=== PATIENT | male | born 1985 | race Caucasian/White ===

== ENCOUNTER 2016-09-01 05:25 | Emergency (ER) | payer SELFPAY ==
[2016-09-01] MEDS ORDERED: methylPREDNISolone SODIUM SUC 125 MG/2 ML VIAL IM ONE (05:38)
--- NOTE | 2016-09-01 05:41 | ED.PDOC ---
History of Present Illness - General Chief Complaint: ENT Problem Stated Complaint: sore itchy throat Time Seen by Provider: 09/01/16 05:38 Source: patient, RN notes reviewed, Vital Signs reviewed Exam Limitations: no limitations - History of Present Illness Initial Comments: Patient comes in with a 3 day history of an itchy throat. Denies pain. No ear pain, no fever or chills. + nasal congestion. Timing/Duration: gradual Severity: severe EENT Location: throat Prearrival Treatment: no prearrival treatment Improving Factors: nothing Worsening Factors: nothing Associated Symptoms: nasal congestion/drainage, sore throat Allergies/Adverse Reactions: Allergies Morphine Allergy (Verified 09/01/16 05:34) Home Medications: Ambulatory Orders Lidocaine HCl (Mouth-Throat) [Lidocaine HCl Viscous] 10 ml MT Q4HR PRN #120 ml 09/01/16 Review of Systems - Review of Systems Constitutional: States: diaphoresis. Denies: chills, fever, malaise EENTM: States: nose congestion, throat pain, throat swelling. Denies: ear pain , ear discharge, nose pain, mouth pain, mouth swelling Respiratory: States: no symptoms reported. Denies: cough Cardiology: States: no symptoms reported Gastrointestinal/Abdominal: States: no symptoms reported. Denies: nausea, vomiting Musculoskeletal: States: no symptoms reported Skin: States: no symptoms reported Neurological: States: no symptoms reported. Denies: headache All other Systems: No Change from Baseline Past Medical History (General) - Patient Medical History Hx Asthma: Yes Hx Cardiac Disorders: Yes - heart murmur Hx Cancer: No Hx Hepatitis C: No Surgical History: other - Vaccination History Hx Tetanus, Diphtheria Vaccination: No Hx Influenza Vaccination: No - Social History Hx Tobacco Use: Yes Hx Alcohol Use: Yes - occ - Female History Patient is a Female of Child Bearing Age (10 -59 yrs old): No Patient : No Family Medical History - Family History Mother Family History: Unknown Living Status: Still Living Physical Exam - Physical Exam General Appearance: Alert, No apparent distress - but is uncomfortable, Well Developed, Well Groomed, Well Hydrated, Well Nourished Eye Exam: bilateral normal Ear Exam: bilateral ear: auricle normal, canal normal, TM normal Throat Exam: pharynx swelling, pharynx tenderness, other - pharyngeal erythema Neck: non-tender, full range of motion, supple, lymphadenopathy (R), lymphadenopathy (L) Cardiovascular/Respiratory: regular rate, rhythm, no M/R/G, no JVD, normal breath sounds, no respiratory distress Neurologic: alert, normal mood/affect, oriented x 3 Skin Exam: normal color, warm/dry Comments: Vital Signs 09/01/16 05:34 Temperature 97.6 F Pulse Rate [ 94 H left] Respiratory 18 Rate Blood Pressure 145/99 [left] O2 Sat by Pulse 99 Oximetry Progress - Progress Progress: 09/01/16 06:01 Per Lab: strep test is negative. - Results/Orders Results/Orders: Laboratory Tests 09/01/16 05:36 Group A Strep DNA Negative Departure - Departure Clinical Impression: Pharyngitis Time of Disposition: 06:01 Disposition: Discharge to Home or Self Care Condition: Good Departure Forms: ED Discharge - Pt. Copy, Patient Portal Self Enrollment Instructions: DI for Viral Pharyngitis Diet: resume usual diet Activity: increase activity as tolerated Prescriptions: Lidocaine HCl (Mouth-Throat) [Lidocaine HCl Viscous] 10 ml MT Q4HR PRN #120 ml PRN Reason: Throat Pain Home Medications: Ambulatory Orders Lidocaine HCl (Mouth-Throat) [Lidocaine HCl Viscous] 10 ml MT Q4HR PRN #120 ml 09/01/16
[2016-09-01 05:42] VITALS: BP 145/99; TEMP 97.6; O2SAT 99
[2016-09-01] MEDS ORDERED: LIDOCAINE VIS-MYLANTA 30 ML UD PO ONE (06:09)
[2016-09-01] MEDS ORDERED: diphenhydrAMINE HCL 50 MG/ML VIAL ONE (06:14)
[2016-09-01] MEDS ORDERED: diphenhydrAMINE HCL 25 MG CAP PO ONE (06:14)
== END 2016-09-01 06:18 | disposition home or self-care (01) ==
LOC: ER 05:25
DX: J02.9 Acute pharyngitis, unspecified (principal); R01.1 Cardiac murmur, unspecified; J45.909 Unspecified asthma, uncomplicated; Z87.891 Personal history of nicotine dependence; Z88.6 Allergy status to analgesic agent
CPT/HCPCS: 87070; 87651; J1200; J2930

== ENCOUNTER 2016-12-06 14:28 | Emergency (ER) | payer SELFPAY ==
[2016-12-06 14:44] VITALS: TEMP 98.5
--- NOTE | 2016-12-06 16:07 | ED.PDOC ---
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 [employer] NOTICED THE RASH ON HIS CHEST AND WANTED HIM TO GET EXAMINED. STARTED YESTERDAY. ITCHY BUT NOT PAINFUL. Timing/Duration: yesterday Severity: mild Location: torso Improving Factors: nothing Worsening Factors: nothing Associated Symptoms: itching Allergies/Adverse Reactions: Allergies Morphine Allergy (Verified 09/01/16 05:34) Home Medications: Ambulatory Orders NK [NK] 12/06/16 Review of Systems - Review of Systems Constitutional: States: no symptoms reported EENTM: States: no symptoms reported Respiratory: States: no symptoms reported. Denies: cough, short of breath Cardiology: States: no symptoms reported Gastrointestinal/Abdominal: States: no symptoms reported Genitourinary: States: no symptoms reported Musculoskeletal: States: no symptoms reported Skin: States: rash Neurological: States: no symptoms reported Endocrine: States: no symptoms reported Hematologic/Lymphatic: States: no symptoms reported All other Systems: Reviewed and Negative Past Medical History (General) - Patient Medical History Hx Asthma: Yes Hx Cardiac Disorders: Yes - heart murmur Hx Congestive Heart Failure: No Hx Diabetes: No Hx Cancer: No Hx Hepatitis C: No Surgical History: appendectomy - Vaccination History Hx Tetanus, Diphtheria Vaccination: No Hx Influenza Vaccination: No - Social History Hx Tobacco Use: Yes Hx Alcohol Use: Yes - occ - Female History Patient : No Family Medical History - Family History Mother Family History: Unknown Living Status: Still Living Physical Exam - Physical Exam General Appearance: Alert, No apparent distress Eyes, Ears, Nose, Throat Exam: PERRL/EOMI, normal ENT inspection Neck: full range of motion, supple Cardiovascular/Chest: normal peripheral pulses, regular rate, rhythm Respiratory: chest non-tender, lungs clear Gastrointestinal/Abdominal: non tender, soft Back Exam: no CVA tenderness Extremity: non-tender, normal inspection 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 EXAMINATION OF HAIR FOLICLES SHOWS DISCRETE ERYTHEMA AROUND 20 OR SO HAIR FOLLICLES OF THE R SUPERIOR CHEST, C/W FOLLICULITIS. Skin Problem Location: torso Skin Character: erythema, macules Lymphatic: no adenopathy Progress - Progress Progress: 12/06/16 16:21 PT DECLINES OFFER OF RX FOR MUPIROCIN OINTMENT FOR THE FOLLICULITIS AND WOULD RATHER TRY NEOSPORIN. Departure - Departure Clinical Impression: Folliculitis Disposition: Discharge to Home or Self Care Condition: Good Departure Forms: ED Discharge - Pt. Copy, Patient Portal Self Enrollment Instructions: DI for Folliculitis Diet: resume usual diet Activity: increase activity as tolerated Home Medications: Ambulatory Orders NK [NK] 12/06/16 Additional Instructions: Please keep the area clean with soap and water. Try shaving from the opposite direction. Neosporin may help.
[2016-12-06 16:25] VITALS: BP 122/69; O2SAT 99
== END 2016-12-06 16:25 | disposition home or self-care (01) ==
LOC: ER 14:28
DX: L73.9 Follicular disorder, unspecified (principal); R01.1 Cardiac murmur, unspecified; Z88.6 Allergy status to analgesic agent

== ENCOUNTER 2016-12-28 13:33 | Emergency (ER) | payer SELFPAY ==
--- NOTE | 2016-12-28 14:15 | CT ---
Study: CT of the Head. Indication: Altered mental status Technique: Axial CT images of the head were acquired without intravenous contrast. This exam was performed according to our departmental dose-optimization program, which includes automated exposure control, adjustment of the mA and/or kV according to patient size and/or use of iterative reconstruction technique. Comparison: None. Findings: No CT evidence of acute ischemia, acute hemorrhage, mass, mass effect, midline shift, or extra-axial fluid collection. Ventricles are normal in configuration without hydrocephalus. Brain parenchyma demonstrates a normal appearance for patient age. Paranasal sinuses are adequately aerated. Mastoid air cells are adequately aerated. Osseous structures and soft tissues are unremarkable. Impression: 1. No CT evidence of acute intracranial abnormality. Electronically signed by: Hernan Hernandez MD 12/28/2016 2:13 PM CDT
[2016-12-28] MEDS ORDERED: SODIUM CHLORIDE 0.9% 1000ML 1,000 ML IVS ONE ×2 (14:43→18:24)
[2016-12-28] MEDS ORDERED: ONDANSETRON INJ 4 MG/2 ML VIAL IV ONE (16:35)
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
[2016-12-28 18:59] VITALS: O2SAT 95
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
[2016-12-28 21:51] VITALS: BP 132/91; TEMP 98.3
[2016-12-28] MEDS ORDERED: ACETYLCYSTEINE INJECTION 200 MG/ML VIAL IVPB ONE ×2 (22:09→22:10)
[2016-12-28] MEDS ORDERED: DEXTROSE 5% 250ML 250 ML ONE (22:10)
[2016-12-28] MEDS ORDERED: ACETYLCYSTEINE IVPB ONE (22:19)
[2016-12-28] MEDS ORDERED: DEXTROSE 5% IVPB ONE (22:19)
== END 2016-12-28 22:55 | disposition short-term general hospital (02) ==
LOC: ER 13:33
DX: T50.904A Poisoning by unspecified drugs, medicaments and biological substances, undetermined, initial encounter (principal); T17.800A Unspecified foreign body in other parts of respiratory tract causing asphyxiation, initial encounter; T39.1X4A Poisoning by 4-Aminophenol derivatives, undetermined, initial encounter; Z88.6 Allergy status to analgesic agent; Y92.9 Unspecified place or not applicable
CPT/HCPCS: 36415; 70450; 71010; 80053; 80307; 80320; 80329; 85025; J0132; J2405; J7030; J7060

== ENCOUNTER 2018-02-09 13:54 | Emergency (ER) | payer SELFPAY ==
[2018-02-09 14:07] VITALS: TEMP 98.9
--- NOTE | 2018-02-09 15:11 | RAD ---
EXAM DESCRIPTION: Chest,2 Views CLINICAL HISTORY: CP, PALPITATIONS COMPARISON: Previous study December 28, 2016 TECHNIQUE: PA/lateral FINDINGS: Heart is enlarged with prominent central pulmonary vascularity. Obscuration of the right heart margin could be partial volume loss or patchy infiltrate involving right middle lobe. Compared to the previous study, perihilar pulmonary infiltrates or edema appear improved. Lateral view shows no significant pleural effusion although trace pleural fluid cannot be excluded with the lower costophrenic angles cut off. Foreign body consistent with metallic piercing or jewelry overlies the trachea above the level of the clavicles. Correlate with physical exam. An aspirated foreign body in the trachea is not thought likely since this is not seen in the tracheal air column on the lateral view. IMPRESSION: Prominent heart with increased central pulmonary vascularity. Improved appearance of the chest since previous study. Electronically signed by: Jozef David MD 02/09/2018 3:09 PM PUPP[employer]ITTER
--- NOTE | 2018-02-09 16:20 | ED.PDOC ---
History of Present Illness - General Chief Complaint: General Time Seen by Provider: 02/09/18 14:14 Source: patient Exam Limitations: no limitations - History of Present Illness Initial Comments: PT STATES HE JUST DOES NOT FEEL WELL. HAS HAD COUGH AND CONGESTION, SORETHROAT AND ELEVATED BP. SOME C/P YESTERDAY BUT NONE TODAY. Timing/Duration: other - 2 DAYS Severity: moderate Improving Factors: nothing Worsening Factors: nothing Associated Symptoms: denies symptoms Allergies/Adverse Reactions: Allergies Morphine Allergy (Verified 12/28/16 14:35) Home Medications: Ambulatory Orders Fmernuuh-Soxossitwuwv-[id number] [Triumeq 600-50-300 mg] 1 tab PO DAILY 02/09/18 Loperamide Cap [Imodium Cap] 2 mg PO Q8HR PRN 02/09/18 Omeprazole 40 mg PO DAILY 02/09/18 Paroxetine HCl [Paxil] 20 mg PO DAILY 02/09/18 Sertraline HCl 50 mg PO DAILY 02/09/18 Sulfamethoxazole-Trimethoprim [Bactrim Ds 800-160 mg] 1 tab PO BID #20 tab 02/09 Trazodone HCl [Trazodone Hydrochloride] 50 mg PO BEDTIME MDD 100 02/09/18 busPIRone HCL [Buspar] 5 mg PO Q8HR PRN 02/09/18 Review of Systems - Review of Systems Constitutional: States: chills. Denies: fever EENTM: States: throat pain. Denies: ear pain Respiratory: States: cough. Denies: short of breath, wheezing Cardiology: States: chest pain. Denies: palpitations, syncope Gastrointestinal/Abdominal: Denies: abdominal pain, nausea, vomiting Genitourinary: States: no symptoms reported Musculoskeletal: States: no symptoms reported Skin: States: other - DIAPHORESIS Neurological: States: no symptoms reported Endocrine: States: no symptoms reported Hematologic/Lymphatic: States: no symptoms reported Past Medical History (General) - Patient Medical History Hx Stroke: No Hx Asthma: No Hx Cardiac Disorders: No Hx Congestive Heart Failure: No Hx Hypertension: Yes Hx Diabetes: No Hx Cancer: No Hx of HIV: Yes Hx Hepatitis C: No Surgical History: tonsillectomy, other - Vaccination History Hx Tetanus, Diphtheria Vaccination: Yes Hx Influenza Vaccination: Yes - 2018 - Social History Hx Tobacco Use: Yes Hx Alcohol Use: Yes - occ - Female History Patient : No Family Medical History - Family History Mother Family History: Unknown Living Status: Still Living Physical Exam - Physical Exam General Appearance: Alert, Anxious, No apparent distress Eye Exam: bilateral normal Ears, Nose, Throat: hearing grossly normal, pharyngeal erythema, other - TM'S NL Neck: non-tender, full range of motion, supple Respiratory: lungs clear, normal breath sounds Cardiovascular/Chest: regular rate, rhythm, tachycardia Gastrointestinal/Abdominal: non tender, soft, no organomegaly Back Exam: normal inspection, no CVA tenderness, no vertebral tenderness Extremity: normal range of motion, non-tender, normal inspection Neurologic: no motor/sensory deficits, alert Skin Exam: normal color, warm/dry, diaphoresis Lymphatic: no adenopathy Progress - EKG/XRAY/CT EKG: Sinus, Tachy - RATE 107, NL AXIS, NL INTERVALS, , nonspecific ST T wave Chg - NAIP, Unchanged from - 12/28/16 XRAY: chest - ANNELISE PERIHILAR INFILTRATES, Departure - Departure Clinical Impression: Acute bronchitis Qualifiers: Bronchitis organism: unspecified organism Qualified Code(s): J20.9 - Acute bronchitis, unspecified Hypertension Qualifiers: Hypertension type: essential hypertension Qualified Code(s): I10 - Essential ( primary) hypertension Time of Disposition: 16:35 Disposition: Discharge to Home or Self Care Condition: Good Departure Forms: ED Discharge - Pt. Copy, Patient Portal Self Enrollment Instructions: Acute Bronchitis Prescriptions: Sulfamethoxazole-Trimethoprim [Bactrim Ds 800-160 mg] 1 tab PO BID #20 tab Home Medications: Ambulatory Orders [id number]-[id number]-Rddtzmdl [Triumeq 600-50-300 mg] 1 tab PO DAILY 02/09/18 Loperamide Cap [Imodium Cap] 2 mg PO Q8HR PRN 02/09/18 Omeprazole 40 mg PO DAILY 02/09/18 Paroxetine HCl [Paxil] 20 mg PO DAILY 02/09/18 Sertraline HCl 50 mg PO DAILY 02/09/18 Sulfamethoxazole-Trimethoprim [Bactrim Ds 800-160 mg] 1 tab PO BID #20 tab 02/09 Trazodone HCl [Trazodone Hydrochloride] 50 mg PO BEDTIME MDD 100 02/09/18 busPIRone HCL [Buspar] 5 mg PO Q8HR PRN 02/09/18
[2018-02-09 16:56] VITALS: BP 124/90; O2SAT 99
== END 2018-02-09 16:56 | disposition home or self-care (01) ==
LOC: ER 13:54
DX: J20.9 Acute bronchitis, unspecified (principal); I10 Essential (primary) hypertension; R00.0 Tachycardia, unspecified; Z21 Asymptomatic human immunodeficiency virus [HIV] infection status; Z87.891 Personal history of nicotine dependence; Z79.899 Other long term (current) drug therapy; Z88.5 Allergy status to narcotic agent

== ENCOUNTER 2018-05-26 08:01 | Emergency (ER) | payer SELFPAY ==
--- NOTE | 2018-05-26 08:15 | ED.PDOC ---
History of Present Illness - General Chief Complaint: Cardiovascular Problem Stated Complaint: Elevated HR and BP Time Seen by Provider: 05/26/18 08:11 Source: patient Exam Limitations: no limitations - History of Present Illness Initial Comments: Tonny Cornejo 33 y/o male came to ER stating that one of his co worker took his blood pressure at [place] and it was noted that systolic 170mm Hg 2 x.Denies history of HTN in the past also has some painful erythematous white patch on his throat for the last 3 days. Has HIV-1 on medication since 2017.No headache ,fever,chills,no chest pains,no double vision. Timing/Duration: 4-6 hours Severity: moderate Improving Factors: nothing Worsening Factors: nothing Associated Symptoms: other - see hpi Allergies/Adverse Reactions: Allergies Morphine Allergy (Verified 05/26/18 08:17) Hives Acetaminophen Adverse Reaction (Verified 05/26/18 08:17) Other Not an allergy. Has been instructed to not take any Tylenol. Home Medications: Ambulatory Orders Abvhpglc-Kydhftxenqnr-Ngxwlwup [Triumeq 600-50-300 mg] 1 tab PO DAILY 02/09/18 Loperamide Cap [Imodium Cap] 2 mg PO Q8HR PRN 02/09/18 Omeprazole 40 mg PO DAILY 02/09/18 Sertraline HCl 100 mg PO DAILY 02/09/18 Trazodone HCl [Trazodone Hydrochloride] 50 mg PO BEDTIME MDD 100 02/09/18 busPIRone HCL [Buspar] 10 mg PO Q8HR PRN 02/09/18 2 Bp Meds 1 each PO BID 05/26/18 Amlodipine Besylate 5 mg PO DAILY #30 tab 05/26/18 Doxycycline (Monohydrate) [Doxycycline] 100 mg PO BID 05/26/18 Nystatin (Mouth-Throat) [Nystatin] 5 ml MT TID #225 ml 05/26/18 Review of Systems - Review of Systems Constitutional: States: no symptoms reported EENTM: States: see HPI, throat pain Respiratory: States: no symptoms reported Cardiology: States: no symptoms reported Gastrointestinal/Abdominal: States: no symptoms reported Genitourinary: States: no symptoms reported Musculoskeletal: States: no symptoms reported Skin: States: no symptoms reported Neurological: States: no symptoms reported All other Systems: Reviewed and Negative, No Change from Baseline Past Medical History (General) - Patient Medical History Hx Stroke: No Hx Asthma: No Hx Cardiac Disorders: No Hx Congestive Heart Failure: No Hx Hypertension: Yes Hx Diabetes: No Hx Cancer: No Hx of HIV: Yes Hx Hepatitis C: No Surgical History: tonsillectomy, other - knee - Vaccination History Hx Tetanus, Diphtheria Vaccination: Yes Hx Influenza Vaccination: Yes - 2018 - Social History Hx Tobacco Use: Yes Hx Alcohol Use: Yes - occ - Female History Patient : No Family Medical History - Family History Mother Family History: Unknown Living Status: Still Living Hx Family Diabetes: Yes - several family members Physical Exam - Physical Exam General Appearance: Alert, Comfortable, No apparent distress Eye Exam: bilateral normal Ears, Nose, Throat: hearing grossly normal, normal ENT inspection, pharyngeal erythema - wirh white patches Neck: non-tender, supple, normal inspection Respiratory: chest non-tender, lungs clear, normal breath sounds, no respiratory distress Cardiovascular/Chest: normal peripheral pulses, regular rate, rhythm, no murmur Peripheral Pulses: radial,right: 2+, radial,left: 2+ Gastrointestinal/Abdominal: non tender, soft, no organomegaly Back Exam: normal inspection, no CVA tenderness, no vertebral tenderness Extremity: no pedal edema, no calf tenderness Neurologic: alert, oriented x 3 Skin Exam: normal color Progress - Progress Progress: 05/26/18 08:19 Vital Signs - 8 hr 05/26/18 08:05 Temperature 96.6 F L Pulse Rate [ 95 H Right Radial] Respiratory 20 Rate Blood Pressure 143/96 [Left Arm] O2 Sat by Pulse 100 Oximetry - Results/Orders Results/Orders: 05/26/18 08:30 EKG Assessment ONCE EKG STAT Laboratory Results - last 24 hr 05/26/18 05/26/18 05/26/18 08:53 08:53 09:50 WBC 5.4 RBC 4.54 L Hgb 14.5 Hct 42.7 MCV 94.1 H MCH 31.9 H MCHC 34.0 RDW 13.0 Plt Count 244 MPV 8.3 Absolute Neuts (auto) 3.40 Absolute Lymphs (auto) 1.40 Absolute Monos (auto) 0.40 Absolute Eos (auto) 0.10 Absolute Basos (auto) 0.10 Neutrophils % 62.1 Lymphocytes % 26.7 Monocytes % 7.9 Eosinophils % 2.2 Basophils % 1.1 PT 9.4 INR 0.94 PTT (SP) 26.0 Sodium 136 Potassium 4.3 Chloride 107 Carbon Dioxide 24 Anion Gap 9.3 L BUN 15 Creatinine 0.94 BUN/Creatinine Ratio 16.0 Random Glucose 107 H Serum Osmolality 273.3 L Calcium 8.9 Magnesium 2.0 Total Bilirubin 0.5 Direct Bilirubin < 0.1 Indirect Bilirubin 0.4 AST 21 ALT 23 Alkaline Phosphatase 88 Creatine Kinase 84 CK-MB (CK-2) 1.1 CK-MB (CK-2) % Not Reportable Troponin I < 0.02 Serum Total Protein 6.9 Albumin 3.7 Triglycerides 262 H Cholesterol 186 Cholesterol Risk Factr 4.9 LDL Cholesterol Direct 108.1 HDL Cholesterol 38 Urine Color Dk yellow Urine Appearance Clear Urine pH 5.5 Ur Specific Delco >= 1.030 Urine Protein Negative Urine Glucose (UA) Negative Urine Ketones Negative Urine Blood Negative Urine Nitrite Negative Urine Bilirubin Negative Urine Urobilinogen 0.2 Ur Leukocyte Esterase Negative Urine RBC 0 Urine WBC 0 Ur Epithelial Cells 0 Urine Bacteria 0 Discuss all test result with patient - EKG/XRAY/CT EKG: Sinus, no ST T wave changes Comments: HR-87 XRAY: chest - no pneumothorax/or opacification Departure - Departure Clinical Impression: Oral thrush, History of HIV-I infection High blood pressure Qualifiers: Hypertension type: unspecified Qualified Code(s): I10 - Essential (primary) hypertension Time of Disposition: 09:58 Disposition: Discharge to Home or Self Care Condition: Fair Departure Forms: ED Discharge - Pt. Copy, Patient Portal Self Enrollment Instructions: High Blood Pressure (DC), High Blood Pressure in Adults, Controlling Your Blood Pressure Through Lifestyle, DASH Diet Prescriptions: Amlodipine Besylate 5 mg PO DAILY #30 tab Nystatin (Mouth-Throat) [Nystatin] 5 ml MT TID #225 ml Home Medications: Ambulatory Orders Rtshcaqd-Lmximzuahuja-Srnduygy [Triumeq 600-50-300 mg] 1 tab PO DAILY 02/09/18 Loperamide Cap [Imodium Cap] 2 mg PO Q8HR PRN 02/09/18 Omeprazole 40 mg PO DAILY 02/09/18 Sertraline HCl 100 mg PO DAILY 02/09/18 Trazodone HCl [Trazodone Hydrochloride] 50 mg PO BEDTIME MDD 100 11/30/18 busPIRone HCL [Buspar] 10 mg PO Q8HR PRN 02/09/18 2 Bp Meds 1 each PO BID 05/26/18 Amlodipine Besylate 5 mg PO DAILY #30 tab 05/26/18 Doxycycline (Monohydrate) [Doxycycline] 100 mg PO BID 05/26/18 Nystatin (Mouth-Throat) [Nystatin] 5 ml MT TID #225 ml 05/26/18 Additional Instructions: Continue with all home medications;[facility]
[2018-05-26 08:16] VITALS: TEMP 96.6
[2018-05-26] MEDS ORDERED: amLODIPine BESYLATE 5 MG TAB PO ONE (08:30)
[2018-05-26 09:11] VITALS: O2SAT 99
--- NOTE | 2018-05-26 09:23 | RAD ---
EXAM DESCRIPTION: Chest,1 View CLINICAL HISTORY: 33 years Male high blood pressure COMPARISON: Two-view chest dated 02/09/2018 TECHNIQUE: Portable AP view of the chest is obtained. Heart: Allowing for magnification factors related to AP portable technique and large body habitus , the heart is normal in size and configuration. Vasculature: There is [] no evidence of aortic aneurysm or acute findings. The pulmonary vascularity is normal. Mediastinum: Unremarkable otherwise. No evidence of mass or adenopathy. Lungs: There is groundglass opacification along the inferior aspect of the right hemithorax. This appearance could result from superimposed breast tissue. Pleural effusions: There are no pleural effusions. There are no pneumothoraces. Osseous structures: There is no evidence of acute fracture, osseous destruction or osteoblastic lesions. Tubes and catheters: Small linear metallic foreign body again noted near the midline overlying the trachea at the T2 level. Upper abdomen: No acute findings. Chest wall: Unremarkable. IMPRESSION: Groundglass opacification of the right lower lung could result from superimposed breast tissue and underpenetration. Mild focal edema versus infection not excluded. Remainder of findings as described above. Dizziness Electronically signed by: Suellen Gonzales MD 05/26/2018 9:20 AM CDT
[2018-05-26] MEDS ORDERED: KETOROLAC TROMETHAMINE INJ 30 MG/ML VIAL IM ONE (09:42)
[2018-05-26] MEDS ORDERED: PROMETHAZINE HCL INJ 25 MG/ML VIAL IM ONE (09:42)
[2018-05-26] MEDS ORDERED: tiZANidine 4 MG TAB PO ONE (09:42)
[2018-05-26 10:15] VITALS: BP 146/107
== END 2018-05-26 10:15 | disposition home or self-care (01) ==
LOC: ER 08:01
DX: I10 Essential (primary) hypertension (principal); B37.0 Candidal stomatitis; Z21 Asymptomatic human immunodeficiency virus [HIV] infection status; Z79.899 Other long term (current) drug therapy; Z88.5 Allergy status to narcotic agent; Z88.6 Allergy status to analgesic agent; Z87.891 Personal history of nicotine dependence

== ENCOUNTER 2019-02-02 02:56 | Emergency (ER) | payer SELFPAY ==
[2019-02-02] MEDS ORDERED: SODIUM CHLORIDE 0.9% 1000ML 1,000 ML IVS PRN (03:45)
[2019-02-02] MEDS ORDERED: SODIUM CHLORIDE 0.9% (FLUSH) 10 ML SYG IV PRN (03:45)
--- NOTE | 2019-02-02 03:50 | ED.PDOC ---
History of Present Illness - General Chief Complaint: Drug or Alcohol Abuse Stated Complaint: ETOH overdose Time Seen by Provider: 02/02/19 03:43 Source: patient, RN notes reviewed, Vital Signs reviewed, police Exam Limitations: intoxication - History of Present Illness Initial Comments: Pt is a 33 yo male brought in by Police, initialy for legal blood draw. Per PD, pt was taken into custody for driving eradically with suspicion for intoxication. Upon arrival he was physically and verbally combative and held down for blood draw, then became responsive only to pain. Pt smells of ETOH. He moves to painful stimuli, but does not give any history. Allergies/Adverse Reactions: Allergies Morphine Allergy (Verified 05/26/18 08:17) Hives Acetaminophen Adverse Reaction (Verified 05/26/18 08:17) Other Not an allergy. Has been instructed to not take any Tylenol. Home Medications: Ambulatory Orders Ltcymvme-Yibdwyrnwwsp-Sexqghrq [Triumeq 600-50-300 mg] 1 tab PO DAILY 02/09/18 Loperamide Cap [Imodium Cap] 2 mg PO Q8HR PRN 02/09/18 RX: Omeprazole 40 mg PO DAILY 02/09/18 RX: Sertraline HCl 100 mg PO DAILY 02/09/18 Trazodone HCl [Trazodone Hydrochloride] 50 mg PO BEDTIME MDD 100 02/09/18 busPIRone HCL [Buspar] 10 mg PO Q8HR PRN 02/09/18 2 Bp Meds 1 each PO BID 05/26/18 Doxycycline (Monohydrate) [Doxycycline] 100 mg PO BID 05/26/18 Nystatin (Mouth-Throat) [Nystatin] 5 ml MT TID #225 ml 05/26/18 RX: Amlodipine Besylate 5 mg PO DAILY #30 tab 05/26/18 Review of Systems - Review of Systems Unable to Obtain Due To: clinical condition - Pt does not answer questions, appears intoxicated Past Medical History (General) - Patient Medical History Hx Stroke: No Hx Asthma: No Hx Cardiac Disorders: No Hx Congestive Heart Failure: No Hx Hypertension: Yes Hx Diabetes: No Hx Gastroesophageal Reflux: Yes Hx Cancer: No Hx of HIV: Yes Hx Hepatitis C: No Hx MRSA: No - Vaccination History Hx Tetanus, Diphtheria Vaccination: Yes Hx Influenza Vaccination: Yes - 2018 Hx Pneumococcal Vaccination: Yes - Social History Hx Tobacco Use: Yes Hx Alcohol Use: Yes - occ Hx Substance Use: No - Female History Patient : No Family Medical History - Family History Mother Family History: Unknown Living Status: Still Living Hx Family Diabetes: Yes - several family members Physical Exam - Physical Exam General Appearance: No apparent distress - Smells of ETOH, responds to pain, nonverbal Eye Exam: bilateral other - scleral injection, pupils 5 mm and reactive Ears, Nose, Throat: other - Gag reflex maintained Neck: non-tender, full range of motion, supple Respiratory: chest non-tender, lungs clear, normal breath sounds, no respiratory distress, no accessory muscle use Cardiovascular/Chest: regular rate, rhythm, no edema, no murmur Gastrointestinal/Abdominal: non tender, soft, no pulsatile mass Back Exam: normal inspection, no vertebral tenderness Extremity: normal inspection, other - Full passive ROM on exam Neurologic: other - somnolent. Withdraws from pain. Does not follow commands Skin Exam: warm/dry Progress - Progress Progress: 02/02/19 04:19 Pt more alert and combative. He is refusing imaging. As I introduce myself, he states "get away. I do not want to talk to you." He tells me the police tried to harm him and does not want any treatment until his family gets here. 02/02/19 04:25 Pt awake and conversational. He is refusing any treatment or evaluation or testing. He appears intoxicated, but capable of making his own decisions. PD notified that he is refusing care. 02/02/19 04:32 Pt VS stable. Refusing treatment. Will DC in custody of Police. - Results/Orders Results/Orders: 02/02/19 03:45 IV Care:Saline Lock per Protoc QSHIFT Telemetry Q4H ETHYL ALCOHOL (ETOH) Stat URINE DRUG SCREEN, 7 ASSAY Stat PARTIAL THROMBOPLASTIN TIME Stat PROTHROMBIN TIME Stat EKG STAT 02/02/19 04:09 ACETAMINOPHEN Stat CARDIAC ENZYME GROUP Stat COMPLETE METABOLIC PROFILE Stat SALICYLATE Stat Laboratory Results - last 24 hr 02/02/19 02/02/19 04:09 04:09 WBC 8.2 RBC 4.42 L Hgb 14.3 Hct 41.2 L MCV 93.3 MCH 32.4 H MCHC 34.7 RDW 12.3 Plt Count 276 MPV 8.3 Absolute Neuts (auto) 5.80 Absolute Lymphs (auto) 1.60 Absolute Monos (auto) 0.70 Absolute Eos (auto) 0.10 Absolute Basos (auto) 0.10 Neutrophils % 70.5 Lymphocytes % 19.9 L Monocytes % 8.1 Eosinophils % 0.6 L Basophils % 0.9 CK-MB (CK-2) 2.8 Troponin I < 0.02 - EKG/XRAY/CT EKG: Sinus, Tachy - rate 110, normal intervals, no ST abnormality Departure - Departure Clinical Impression: Intoxication Time of Disposition: 04:28 Disposition: Penitentiary Condition: Fair Departure Forms: ED Discharge - Pt. Copy, Patient Portal Self Enrollment Instructions: DI for Alcohol Abuse and Alcoholism Diet: resume usual diet Activity: walking as tolerated Home Medications: Ambulatory Orders Grnbjbeq-Smokwhavwbve-Uzauyqxs [Triumeq 600-50-300 mg] 1 tab PO DAILY 02/09/18 Loperamide Cap [Imodium Cap] 2 mg PO Q8HR PRN 02/09/18 RX: Omeprazole 40 mg PO DAILY 02/09/18 RX: Sertraline HCl 100 mg PO DAILY 02/09/18 Trazodone HCl [Trazodone Hydrochloride] 50 mg PO BEDTIME MDD 100 02/09/18 busPIRone HCL [Buspar] 10 mg PO Q8HR PRN 02/09/18 2 Bp Meds 1 each PO BID 05/26/18 Doxycycline (Monohydrate) [Doxycycline] 100 mg PO BID 05/26/18 Nystatin (Mouth-Throat) [Nystatin] 5 ml MT TID #225 ml 05/26/18 RX: Amlodipine Besylate 5 mg PO DAILY #30 tab 05/26/18
[2019-02-02 04:01] VITALS: TEMP 98.2
[2019-02-02 04:17] VITALS: BP 119/94; O2SAT 100
== END 2019-02-02 04:34 ==
LOC: ER 02:56
DX: F10.129 Alcohol abuse with intoxication, unspecified (principal); R00.0 Tachycardia, unspecified; I10 Essential (primary) hypertension; K21.9 Gastro-esophageal reflux disease without esophagitis; Z21 Asymptomatic human immunodeficiency virus [HIV] infection status; Z87.891 Personal history of nicotine dependence; Z79.899 Other long term (current) drug therapy; Z88.5 Allergy status to narcotic agent; Z88.6 Allergy status to analgesic agent
CPT/HCPCS: 80053; 80320; 80329; 82550; 82553; 84484; 85025; 85610; 85730; 93005; J7030

== ENCOUNTER 2020-01-08 14:17 | Emergency (ER) | payer SELFPAY ==
--- NOTE | 2020-01-08 14:58 | ED.PDOC ---
History of Present Illness - General Chief Complaint: Respiratory Problem Time Seen by Provider: 01/08/20 14:53 Source: patient, RN notes reviewed, Vital Signs reviewed Exam Limitations: no limitations - History of Present Illness Initial Comments: Patient is a 34-year-old male who presents the ED with 1 week history of nonproductive cough, shortness of breath, diffuse body aches and fatigue. Also states he has had loose stools 1-2 times a day. He denies fever, abdominal pain, headache, stiff neck, nausea or vomiting. Denies blood in the stool. States a coworker that he has been exposed to recently tested positive for COVID-19 and he was told by his employer to come to be evaluated. Allergies/Adverse Reactions: Allergies Morphine Allergy (Verified 05/26/18 08:17) Hives Acetaminophen Adverse Reaction (Verified 05/26/18 08:17) Other Not an allergy. Has been instructed to not take any Tylenol. Home Medications: Ambulatory Orders Zpuehngs-Rkjvkzqcnljn-Aroplnpi [Triumeq 600-50-300 mg] 1 tab PO DAILY 02/09/18 Loperamide Cap [Imodium Cap] 2 mg PO Q8HR PRN 02/09/18 Omeprazole 40 mg PO DAILY 02/09/18 Sertraline HCl 100 mg PO DAILY 02/09/18 Trazodone HCl [Trazodone Hydrochloride] 50 mg PO BEDTIME MDD 100 02/09/18 busPIRone HCL [Buspar] 10 mg PO Q8HR PRN 02/09/18 2 Bp Meds 1 each PO BID 05/26/18 Amlodipine Besylate 5 mg PO DAILY #30 tab 05/26/18 Doxycycline (Monohydrate) [Doxycycline] 100 mg PO BID 05/26/18 Nystatin (Mouth-Throat) [Nystatin] 5 ml MT TID #225 ml 05/26/18 Albuterol Inhaler [Ventolin Hfa Inhaler] 2 puff INH Q6H PRN #1 inh 01/08/20 Benzonatate Perles [Tessalon Perles] 100 mg PO Q6H PRN #20 cap 01/08/20 Prednisone 60 mg PO DAILY 5 Days #15 tab 01/08/20 Review of Systems - Review of Systems Constitutional: Denies: chills, fever, weakness EENTM: States: nose congestion. Denies: blurred vision, throat pain Respiratory: States: cough, short of breath Cardiology: Denies: chest pain, palpitations, syncope Gastrointestinal/Abdominal: States: diarrhea. Denies: abdominal pain, nausea, vomiting Genitourinary: States: no symptoms reported Musculoskeletal: Denies: back pain, neck pain Neurological: Denies: headache, paresthesia All other Systems: Reviewed and Negative Past Medical History (General) - Patient Medical History Hx Stroke: No Hx Asthma: No Hx Cardiac Disorders: No Hx Congestive Heart Failure: No Hx Hypertension: Yes Hx Diabetes: No Hx Gastroesophageal Reflux: Yes Hx Cancer: No Hx of HIV: Yes Hx Hepatitis C: No Hx MRSA: No - Vaccination History Hx Tetanus, Diphtheria Vaccination: Yes Hx Influenza Vaccination: Yes - 2018 Hx Pneumococcal Vaccination: Yes - Social History Hx Tobacco Use: Yes Hx Alcohol Use: Yes - occ Hx Substance Use: No Hx Substance Use Treatment: Yes Hx Depression: Yes - Female History Patient : No Family Medical History - Family History Mother Family History: Unknown Living Status: Still Living Hx Family Diabetes: Yes - several family members Physical Exam - Physical Exam General Appearance: Alert, Comfortable, No apparent distress Ears, Nose, Throat: normal pharynx Neck: non-tender, full range of motion, supple Respiratory: chest non-tender, lungs clear, normal breath sounds, no respiratory distress, no accessory muscle use Cardiovascular/Chest: regular rate, rhythm, no edema Gastrointestinal/Abdominal: non tender, soft, no pulsatile mass, other - NTTP in all quadrants Back Exam: no CVA tenderness, no vertebral tenderness Extremity: normal range of motion, non-tender, normal inspection Skin Exam: normal color, warm/dry Progress - Progress Progress: 01/08/20 15:55 Patient presents with cough cold congestion for well. COVID-19 swab as well as chest x-ray are unremarkable. He has no respiratory distress or hypoxia. Will treat with prednisone and albuterol for viral upper respiratory infection I am asking to follow-up with his PCP in 1 to 2 days for recheck. Strict return precautions given. - Results/Orders Results/Orders: CHEST XRAY EXAM DESCRIPTION: Chest,1 View CLINICAL HISTORY: cough COMPARISON: 26 May 2018 TECHNIQUE: AP portable chest FINDINGS: A poor respiratory effect is observed. The lungs are clear. The heart is within range of normal. No pleural fluid is seen. IMPRESSION: Poor inspiratory effect otherwise unremarkable chest. COVID 19 SWAB NEGATIVE Departure - Departure Clinical Impression: Viral URI with cough Time of Disposition: 15:56 Disposition: Discharge to Home or Self Care Condition: Good Departure Forms: ED Discharge - Pt. Copy, Patient Portal Self Enrollment Instructions: Viral Upper Respiratory Infection, Adult (DC) Diet: resume usual diet Activity: increase activity as tolerated Prescriptions: Prednisone 60 mg PO DAILY 5 Days #15 tab Benzonatate Perles [Tessalon Perles] 100 mg PO Q6H PRN #20 cap PRN Reason: Cough Albuterol Inhaler [Ventolin Hfa Inhaler] 2 puff INH Q6H PRN #1 inh PRN Reason: Wheezing Home Medications: Ambulatory Orders Rqyyxrpg-Kranmdsyruxf-Fayxdlic [Triumeq 600-50-300 mg] 1 tab PO DAILY 02/09/18 Loperamide Cap [Imodium Cap] 2 mg PO Q8HR PRN 02/09/18 Omeprazole 40 mg PO DAILY 02/09/18 Sertraline HCl 100 mg PO DAILY 02/09/18 Trazodone HCl [Trazodone Hydrochloride] 50 mg PO BEDTIME MDD 100 02/09/18 busPIRone HCL [Buspar] 10 mg PO Q8HR PRN 02/09/18 2 Bp Meds 1 each PO BID 05/26/18 Amlodipine Besylate 5 mg PO DAILY #30 tab 05/26/18 Doxycycline (Monohydrate) [Doxycycline] 100 mg PO BID 05/26/18 Nystatin (Mouth-Throat) [Nystatin] 5 ml MT TID #225 ml 05/26/18 Albuterol Inhaler [Ventolin Hfa Inhaler] 2 puff INH Q6H PRN #1 inh 01/08/20 Benzonatate Perles [Tessalon Perles] 100 mg PO Q6H PRN #20 cap 01/08/20 Prednisone 60 mg PO DAILY 5 Days #15 tab 01/08/20
--- NOTE | 2020-01-08 15:23 | RAD ---
EXAM DESCRIPTION: Chest,1 View CLINICAL HISTORY: cough COMPARISON: 26 May 2018 TECHNIQUE: AP portable chest FINDINGS: A poor respiratory effect is observed. The lungs are clear. The heart is within range of normal. No pleural fluid is seen. IMPRESSION: Poor inspiratory effect otherwise unremarkable chest. Electronically signed by: Ralph Islas MD 01/08/2020 3:22 PM CDT
[2020-01-08 20:09] VITALS: BP 138/99; TEMP 97.5; O2SAT 99
== END 2020-01-08 16:30 | disposition home or self-care (01) ==
LOC: ER 14:17
DX: J06.9 Acute upper respiratory infection, unspecified (principal); R19.7 Diarrhea, unspecified; I10 Essential (primary) hypertension; K21.9 Gastro-esophageal reflux disease without esophagitis; F32.9 Major depressive disorder, single episode, unspecified; Z20.828 Contact with and (suspected) exposure to other viral communicable diseases; Z79.899 Other long term (current) drug therapy; Z87.891 Personal history of nicotine dependence; Z88.5 Allergy status to narcotic agent; Z88.6 Allergy status to analgesic agent

== ENCOUNTER 2020-01-30 09:37 | Emergency (ER) | payer SELFPAY ==
--- NOTE | 2020-01-30 10:44 | RAD ---
Study: Single Frontal Radiograph of the Chest. Indication:body aches, runny nose, lll rales Comparison: January 08, 2020 Impression: Heart size upper limits of normal without failure. Mild bilateral basilar atelectasis, otherwise lungs clear. Suspected piercing projects over the trachea at the level of the clavicles. Electronically signed by: Hernan Hernandez MD 01/30/2020 10:42 AM [employer]
[2020-01-30 10:56] VITALS: TEMP 100.1; O2SAT 98
[2020-01-30] MEDS ORDERED: predniSONE 20 MG TAB PO ONE (11:24)
[2020-01-30] MEDS ORDERED: PENICILLIN BENZATHINE 1.2 MU 1.2 MU/2 ML SYG IM ONE (11:24)
[2020-01-30] MEDS ORDERED: AZITHROMYCIN 250 MG TAB PO ONE (11:24)
--- NOTE | 2020-01-30 11:31 | ED.PDOC ---
History of Present Illness - General Chief Complaint: Respiratory Problem Stated Complaint: body aches, loss of smell Time Seen by Provider: 01/30/20 09:49 Source: patient Exam Limitations: no limitations - History of Present Illness Initial Comments: Patient 34-year-old male presented emergency room with fever and body aches and little bit of a runny nose and a cough for the last 12 to 24 hours. He has had coronavirus exposure. Patient does have HIV but has had an undetectable viral load for 2 years according to him. He is compliant with his medications and has never had any HIV associated disease. He has kept recent follow-up with his infectious disease specialist. No chest pain or shortness of breath. No syncope. He is mildly tachycardic but there is no hypoxia. He has very mild fine rales to the left base. Timing/Duration: 24 hours Severity: mild Improving Factors: nothing Worsening Factors: nothing Associated Symptoms: cough, malaise Allergies/Adverse Reactions: Allergies Morphine Allergy (Verified 05/26/18 08:17) Hives Acetaminophen Adverse Reaction (Verified 05/26/18 08:17) Other Not an allergy. Has been instructed to not take any Tylenol. Home Medications: Ambulatory Orders Xidhorpd-Jokrxymiaqpa-Hamycuai [Triumeq 600-50-300 mg] 1 tab PO DAILY 02/09/18 Loperamide Cap [Imodium Cap] 2 mg PO Q8HR PRN 02/09/18 Omeprazole 40 mg PO DAILY 02/09/18 Sertraline HCl 100 mg PO DAILY 02/09/18 Trazodone HCl [Trazodone Hydrochloride] 50 mg PO BEDTIME MDD 100 02/09/18 busPIRone HCL [Buspar] 10 mg PO Q8HR PRN 02/09/18 2 Bp Meds 1 each PO BID 05/26/18 Amlodipine Besylate 5 mg PO DAILY #30 tab 05/26/18 Doxycycline (Monohydrate) [Doxycycline] 100 mg PO BID 05/26/18 Nystatin (Mouth-Throat) [Nystatin] 5 ml MT TID #225 ml 05/26/18 Albuterol Inhaler [Ventolin Hfa Inhaler] 2 puff INH Q6H PRN #1 inh 01/08/20 Benzonatate Perles [Tessalon Perles] 100 mg PO Q6H PRN #20 cap 01/08/20 Prednisone 60 mg PO DAILY 5 Days #15 tab 01/08/20 Azithromycin 500 mg PO DAILY #5 tab 01/30/20 predniSONE [Prednisone] 20 mg PO DAILY #5 tab 01/30/20 Review of Systems - Review of Systems Constitutional: States: fever - Low-grade, malaise EENTM: States: nose congestion, throat pain - Mild Respiratory: States: cough Cardiology: States: no symptoms reported Gastrointestinal/Abdominal: States: no symptoms reported Genitourinary: States: no symptoms reported Musculoskeletal: States: no symptoms reported Skin: States: no symptoms reported Neurological: States: no symptoms reported Endocrine: States: no symptoms reported All other Systems: No Change from Baseline Past Medical History (General) - Patient Medical History Hx Seizures: No Hx Stroke: No Hx Dementia: No Hx Asthma: No Hx of COPD: No Hx Cardiac Disorders: Yes - tachycardia Hx Congestive Heart Failure: No Hx Pacemaker: No Hx Hypertension: Yes Hx Diabetes: No Hx Gastroesophageal Reflux: Yes Hx Renal Disease: No Hx Cancer: No Hx of HIV: Yes Hx Hepatitis C: No Hx MRSA: No Surgical History: appendectomy, tonsillectomy - Vaccination History Hx Tetanus, Diphtheria Vaccination: Yes Hx Influenza Vaccination: Yes - 2018 Hx Pneumococcal Vaccination: Yes - Social History Hx Tobacco Use: Yes Hx Alcohol Use: Yes - occ Hx Substance Use: No Hx Substance Use Treatment: Yes Hx Depression: Yes - Female History Patient : No Family Medical History - Family History Mother Family History: Unknown Living Status: Still Living Hx Family Diabetes: Yes - several family members Physical Exam - Physical Exam General Appearance: Alert, Comfortable, No apparent distress Eye Exam: bilateral normal Ears, Nose, Throat: hearing grossly normal, nasal congestion, pharyngeal erythema Neck: full range of motion, supple Respiratory: no respiratory distress, no accessory muscle use, other - See above. Good air movement. Very mild fine rales to the left base. Cardiovascular/Chest: normal peripheral pulses, regular rate, rhythm, no edema Peripheral Pulses: radial,right: 2+, radial,left: 2+ Gastrointestinal/Abdominal: non tender, soft Rectal Exam: deferred Back Exam: no CVA tenderness, no vertebral tenderness Extremity: non-tender, normal inspection, no pedal edema, normal capillary refill Neurologic: director print II-XII nml as tested, alert, normal mood/affect, oriented x 3 Skin Exam: normal color Comments: Vital Signs - 24 hr 01/30/20 10:24 Temperature 100.1 F H Pulse Rate [ 124 H Left Radial] Respiratory 18 Rate Blood Pressure 156/101 [Right Arm] O2 Sat by Pulse 98 Oximetry Progress - Progress Progress: 01/30/20 11:31 The patient is a 34-year-old male presented emergency room with strep throat and coronavirus. No evidence of hypoxia or distress. The patient is going to be placed on azithromycin for 5 days and prednisone for 5 days. He is receiving a dose of Bicillin LA for the strep throat. He is to keep himself hydrated. He needs to keep follow-up with his infectious disease specialist. He needs to return to the emergency room for any significant worsening. Otherwise he needs to give his primary care doctor call early next week for follow-up. justin watts [phone] - Results/Orders Results/Orders: Laboratory Results - last 24 hr 01/30/20 10:00 Group A Strep Rapid Positive H Rapid coronavirus test is positive. Chest x-ray shows mild atelectasis. Departure - Departure Clinical Impression: Strep throat, 2019 novel coronavirus detected Disposition: Discharge to Home or Self Care Condition: Fair Departure Forms: ED Discharge - Pt. Copy, Patient Portal Self Enrollment Instructions: Coronavirus Disease 2019 (COVID-19), Sore Throat, Adult (DC) Diet: regular diet Activity: increase activity as tolerated Prescriptions: Azithromycin 500 mg PO DAILY #5 tab predniSONE [Prednisone] 20 mg PO DAILY #5 tab Home Medications: Ambulatory Orders Wsqgviql-Ahjuhotpidwm-Fsurqraz [Triumeq 600-50-300 mg] 1 tab PO DAILY 02/09/18 Loperamide Cap [Imodium Cap] 2 mg PO Q8HR PRN 02/09/18 Omeprazole 40 mg PO DAILY 02/09/18 Sertraline HCl 100 mg PO DAILY 02/09/18 Trazodone HCl [Trazodone Hydrochloride] 50 mg PO BEDTIME MDD 100 02/09/18 busPIRone HCL [Buspar] 10 mg PO Q8HR PRN 02/09/18 2 Bp Meds 1 each PO BID 05/26/18 Amlodipine Besylate 5 mg PO DAILY #30 tab 05/26/18 Doxycycline (Monohydrate) [Doxycycline] 100 mg PO BID 05/26/18 Nystatin (Mouth-Throat) [Nystatin] 5 ml MT TID #225 ml 05/26/18 Albuterol Inhaler [Ventolin Hfa Inhaler] 2 puff INH Q6H PRN #1 inh 01/08/20 Benzonatate Perles [Tessalon Perles] 100 mg PO Q6H PRN #20 cap 01/08/20 Prednisone 60 mg PO DAILY 5 Days #15 tab 01/08/20 Azithromycin 500 mg PO DAILY #5 tab 01/30/20 predniSONE [Prednisone] 20 mg PO DAILY #5 tab 01/30/20 Additional Instructions: The patient is a 34-year-old male presented emergency room with strep throat and coronavirus. No evidence of hypoxia or distress. The patient is going to be placed on azithromycin for 5 days and prednisone for 5 days. He is receiving a dose of Bicillin LA for the strep throat. He is to keep himself hydrated. He needs to keep follow-up with his infectious disease specialist. He needs to return to the emergency room for any significant worsening. Otherwise he needs to give his primary care doctor call early next week for follow-up.
[2020-01-30 11:52] VITALS: BP 131/94
== END 2020-01-30 11:55 | disposition home or self-care (01) ==
LOC: ER 09:37
DX: U07.1 COVID-19 (principal); J02.0 Streptococcal pharyngitis; R00.0 Tachycardia, unspecified; F32.9 Major depressive disorder, single episode, unspecified; I10 Essential (primary) hypertension; K21.9 Gastro-esophageal reflux disease without esophagitis; Z21 Asymptomatic human immunodeficiency virus [HIV] infection status; Z87.891 Personal history of nicotine dependence; Z79.899 Other long term (current) drug therapy; Z88.5 Allergy status to narcotic agent; Z88.6 Allergy status to analgesic agent
CPT/HCPCS: 71045; 87635; 87880; J0561; J7512; Q0144

== ENCOUNTER 2020-04-23 18:34 | Emergency (ER) | payer SELFPAY ==
[2020-04-23] MEDS ORDERED: SODIUM CHLORIDE 0.9% 1000ML 1,000 ML IVS ONE (18:44)
[2020-04-23] MEDS ORDERED: ONDANSETRON INJ 4 MG/2 ML VIAL IV ONE (19:04)
--- NOTE | 2020-04-23 20:01 | ED.PDOC ---
History of Present Illness - General Chief Complaint: Neuro Symptoms/Deficits Stated Complaint: altered mental status Time Seen by Provider: 04/23/20 18:41 Source: EMS notes reviewed Exam Limitations: clinical condition - History of Present Illness Initial Comments: The patient is a 35-year-old male presenting to the emergency room secondary to altered mental state. Apparently family tried to contact the patient today but was unable to get hold of him. Police found him significantly lethargic in his apartment. There was a empty bottle of tequila beside him. There is also apparently a empty syringe but we have found no points of injection. There is some question of attempted self-harm. No empty pill bottles were found. The patient is very lethargic but will withdraw to pain and will protect his airway. He does actually move all extremities at one point. Timing/Duration: unsure Severity: severe Improving Factors: nothing Worsening Factors: nothing Associated Symptoms: malaise Allergies/Adverse Reactions: Allergies Morphine Allergy (Verified 05/26/18 08:17) Hives Acetaminophen Adverse Reaction (Verified 05/26/18 08:17) Other Not an allergy. Has been instructed to not take any Tylenol. Home Medications: Ambulatory Orders Gluknpch-Tcwtompwchnp-Tksvhijh [Triumeq 600-50-300 mg] 1 tab PO DAILY 02/09/18 Loperamide Cap [Imodium Cap] 2 mg PO Q8HR PRN 02/09/18 Omeprazole 40 mg PO DAILY 02/09/18 Sertraline HCl 100 mg PO DAILY 02/09/18 Trazodone HCl [Trazodone Hydrochloride] 50 mg PO BEDTIME MDD 100 02/09/18 busPIRone HCL [Buspar] 10 mg PO Q8HR PRN 02/09/18 2 Bp Meds 1 each PO BID 05/26/18 Amlodipine Besylate 5 mg PO DAILY #30 tab 05/26/18 Doxycycline (Monohydrate) [Doxycycline] 100 mg PO BID 05/26/18 Nystatin (Mouth-Throat) [Nystatin] 5 ml MT TID #225 ml 05/26/18 Albuterol Inhaler [Ventolin Hfa Inhaler] 2 puff INH Q6H PRN #1 inh 01/08/20 Benzonatate Perles [Tessalon Perles] 100 mg PO Q6H PRN #20 cap 01/08/20 Prednisone 60 mg PO DAILY 5 Days #15 tab 01/08/20 Azithromycin 500 mg PO DAILY #5 tab 01/30/20 predniSONE [Prednisone] 20 mg PO DAILY #5 tab 01/30/20 Azithromycin 250 mg PO DAILY #6 tab 01/31/20 Prednisone 20 mg PO DAILY #5 tab 01/31/20 Review of Systems - Review of Systems Review of Systems: 04/23/20 20:00 Patient unable to give review of systems due to symptoms. Past Medical History (General) - Patient Medical History Hx Seizures: Yes - only when taking hormone theapy, been off therapy for 3 years Hx Stroke: No Hx Dementia: No Hx Asthma: No Hx of COPD: No Hx Cardiac Disorders: Yes - tachycardia Hx Congestive Heart Failure: No Hx Pacemaker: No Hx Hypertension: Yes Hx Diabetes: No Hx Gastroesophageal Reflux: Yes Hx Renal Disease: No Hx Cancer: No Hx of HIV: Yes Hx Hepatitis C: No Hx MRSA: No - Vaccination History Hx Tetanus, Diphtheria Vaccination: Yes Hx Influenza Vaccination: Yes - 2018 Hx Pneumococcal Vaccination: Yes Immunizations Up to Date: Yes - Social History Hx Tobacco Use: Yes Hx Alcohol Use: Yes Hx Substance Use: No Hx Substance Use Treatment: Yes Hx Depression: Yes - Female History Patient : No - Triage Comment ED Triage Comment: pt has hx of self harm attempts, last occurance is 3 years ago per family Family Medical History - Family History Mother Family History: Unknown Living Status: Still Living Hx Family Diabetes: Yes - several family members Physical Exam - Physical Exam General Appearance: Lethargic Eye Exam: bilateral normal - Color contacts are in place. Ears, Nose, Throat: normal pharynx - Gag reflex is present. Respiratory: lungs clear, normal breath sounds, no respiratory distress, no accessory muscle use, other - Breast implants are palpable Cardiovascular/Chest: normal peripheral pulses, regular rate, rhythm, no edema Peripheral Pulses: radial,right: 2+, radial,left: 2+ Gastrointestinal/Abdominal: soft Rectal Exam: deferred Back Exam: normal inspection Extremity: normal range of motion, no pedal edema, normal capillary refill Neurologic: other - Lethargic. Moves all extremities to pain. Gag reflex is strong. Skin Exam: normal color Comments: Vital Signs - 24 hr 04/23/20 18:47 Temperature 96.5 F L Pulse Rate [ 107 H left brachial] Respiratory 20 Rate Blood Pressure 150/94 [left brachial] O2 Sat by Pulse 97 Oximetry Vital Signs - 24 hr 04/23/20 04/23/20 04/23/20 18:47 19:34 20:34 Temperature 96.5 F L 97.7 F Pulse Rate [ 107 H 68 60 left brachial] Respiratory 20 16 16 Rate Blood Pressure 150/94 144/85 134/81 [left brachial] O2 Sat by Pulse 97 96 96 Oximetry 04/23/20 04/23/20 04/23/20 21:34 22:34 23:00 Temperature 98.1 F Pulse Rate [ 64 70 64 left brachial] Respiratory 16 16 16 Rate Blood Pressure 152/99 152/95 148/84 [left brachial] O2 Sat by Pulse 96 96 96 Oximetry Progress - Progress Progress: 04/23/20 20:01 The patient is a 35-year-old male presented to emergency room secondary to lethargy that is most consistent with acute intoxication. Alcohol was found in his presence. He has had 1 previous episode like this in the past. Laboratory work will be performed. Patient will remain on telemetry and pulse oximetry monitoring. He will receive a liter of IV fluids and a dose of Zofran. We will attempt to get a tox screen however a blood screen is a send out. Monitoring closely. At this point in time a head CT is not warranted but if clinical condition changes then that may become necessary. 04/24/20 00:13 The patient has slept about 5 hours. Vital signs have been stable. He is easily arousable now. He reports he was not trying to hurt himself he was just trying to get some sleep. He had taken the alcohol along with sleeping medications. justin watts 747 - Results/Orders Results/Orders: Laboratory Tests 04/23/20 04/23/20 04/23/20 18:15 18:50 18:50 WBC 4.7 L RBC 4.57 L Hgb 14.5 Hct 42.4 MCV 92.7 MCH 31.8 H MCHC 34.3 RDW 12.9 Plt Count 227 MPV 8.1 Absolute Neuts (auto) 2.30 Absolute Lymphs (auto) 2.00 Absolute Monos (auto) 0.30 Absolute Eos (auto) 0.10 Absolute Basos (auto) 0.00 Neutrophils % 48.3 Lymphocytes % 42.3 Monocytes % 7.2 Eosinophils % 1.5 Basophils % 0.7 Sodium 142 Potassium 3.9 Chloride 108 Carbon Dioxide 25 Anion Gap 12.9 BUN 13 Creatinine 0.84 BUN/Creatinine Ratio 15.5 Random Glucose 102 Serum Osmolality 283.4 Calcium 8.8 Magnesium Total Bilirubin 0.7 AST 26 ALT 28 Alkaline Phosphatase 98 Creatine Kinase 140 CK-MB (CK-2) 1.2 CK-MB (CK-2) % Not Reportable Troponin I < 0.02 Serum Total Protein 7.8 Albumin 4.2 Globulin 3.6 H Albumin/Globulin Ratio 1.2 Salicylates Urine Opiates Screen Acetaminophen Urine Barbiturates Ur Phencyclidine Scrn U Amphetamin/Meth Scrn U Benzodiazepines Scrn U Cocaine Metab Screen U Cannabinoids Screen Ethyl Alcohol 108.10 H* 04/23/20 04/23/20 18:55 20:08 WBC RBC Hgb Hct MCV MCH MCHC RDW Plt Count MPV Absolute Neuts (auto) Absolute Lymphs (auto) Absolute Monos (auto) Absolute Eos (auto) Absolute Basos (auto) Neutrophils % Lymphocytes % Monocytes % Eosinophils % Basophils % Sodium Potassium Chloride Carbon Dioxide Anion Gap BUN Creatinine BUN/Creatinine Ratio Random Glucose Serum Osmolality Calcium Magnesium 2.2 Total Bilirubin AST ALT Alkaline Phosphatase Creatine Kinase CK-MB (CK-2) CK-MB (CK-2) % Troponin I Serum Total Protein Albumin Globulin Albumin/Globulin Ratio Salicylates < 4.0 Urine Opiates Screen Negative Acetaminophen < 10.0 L Urine Barbiturates Negative Ur Phencyclidine Scrn Negative U Amphetamin/Meth Scrn Negative U Benzodiazepines Scrn Negative U Cocaine Metab Screen Negative U Cannabinoids Screen Negative Ethyl Alcohol EKG shows sinus tachycardia 106 bpm. Normal axis. Normal R wave progression. No ST segment or T wave changes indicative of acute ischemia. Borderline prolonged QT interval. Rate is 106 bpm. Departure - Departure Clinical Impression: Alcohol use with intoxication, Prescription drug abuse Disposition: Discharge to Home or Self Care Condition: Fair Departure Forms: ED Discharge - Pt. Copy, Patient Portal Self Enrollment Instructions: Polysubstance Abuse (DC) Diet: regular diet Activity: increase activity as tolerated Home Medications: Ambulatory Orders Scpabyzc-Zcdhkkcmbwtz-Wrycypfe [Triumeq 600-50-300 mg] 1 tab PO DAILY 02/09/18 Loperamide Cap [Imodium Cap] 2 mg PO Q8HR PRN 02/09/18 Omeprazole 40 mg PO DAILY 02/09/18 Sertraline HCl 100 mg PO DAILY 02/09/18 Trazodone HCl [Trazodone Hydrochloride] 50 mg PO BEDTIME MDD 100 02/09/18 busPIRone HCL [Buspar] 10 mg PO Q8HR PRN 02/09/18 2 Bp Meds 1 each PO BID 05/26/18 Amlodipine Besylate 5 mg PO DAILY #30 tab 05/26/18 Doxycycline (Monohydrate) [Doxycycline] 100 mg PO BID 05/26/18 Nystatin (Mouth-Throat) [Nystatin] 5 ml MT TID #225 ml 05/26/18 Albuterol Inhaler [Ventolin Hfa Inhaler] 2 puff INH Q6H PRN #1 inh 01/08/20 Benzonatate Perles [Tessalon Perles] 100 mg PO Q6H PRN #20 cap 01/08/20 Prednisone 60 mg PO DAILY 5 Days #15 tab 01/08/20 Azithromycin 500 mg PO DAILY #5 tab 01/30/20 predniSONE [Prednisone] 20 mg PO DAILY #5 tab 01/30/20 Azithromycin 250 mg PO DAILY #6 tab 01/31/20 Prednisone 20 mg PO DAILY #5 tab 01/31/20 Additional Instructions: The patient is a 35-year-old male presenting after an accidental overdose of alcohol and sleeping medications. Vital signs have remained stable. Patient has been monitored almost 6 hours. Patient needs to follow-up with primary care doctor later in the coming week. He needs to avoid mixing alcohol with sleep medications. ER warnings are given.
[2020-04-24 00:27] VITALS: BP 136/84; TEMP 97.2; O2SAT 97
== END 2020-04-24 00:27 | disposition home or self-care (01) ==
LOC: ER 18:34
DX: F10.129 Alcohol abuse with intoxication, unspecified (principal); F13.90 Sedative, hypnotic, or anxiolytic use, unspecified, uncomplicated; R41.82 Altered mental status, unspecified; R56.9 Unspecified convulsions; I10 Essential (primary) hypertension; K21.9 Gastro-esophageal reflux disease without esophagitis; F32.9 Major depressive disorder, single episode, unspecified; Z87.891 Personal history of nicotine dependence; Z91.5 Personal history of self-harm; Z79.899 Other long term (current) drug therapy
CPT/HCPCS: 36415; 80053; 80307; 80320; 80329; 82550; 82553; 83735; 84484; 85025; 93005; J2405; J7030